=== PATIENT | male | born 1980 | race African-American/Black ===

== ENCOUNTER 2018-09-23 09:11 | Emergency (ER) | payer MEDICARE ==
[2018-09-23] MEDS ORDERED: 0.9 % SODIUM CHLORIDE 1000ML 1,000 ML IV PRN (09:12)
--- NOTE | 2018-09-23 09:21 | Emergency Department Record ---
History of Present Illness - General Chief Complaint: Altered Mental Status Stated Complaint: LOC Time Seen by Provider: 09/23/18 09:15 Source: Patient, Family (mother and father), RN notes reviewed Mode of Arrival: Wheelchair Limitations: Altered mental status - History of Present Illness Initial Comments: mother states he vomited today at 7:30am and he is not as talkative as usual and he is moving both arms but weaker than usual. PMH cerebral palsy and he normally doesn't move his legs and he has a brain shunt for hydrocephalus and history of seizures. Last time in the hospital at [facility] 15 years ago and his pediatric neurologist Dr. Card and he has not set up a adult neurologist. Patient denies pain and he moved both arms to verbal commands. Acuchek ordered, Mother states not diabetic. Mom stated last night he didn't eat much and was tired than and not acting like himself. Currently he denies a headache and no pain but falls asleep when I was talking to him. mother said he had a headache yesterday at 7:30pm last night. acucheck 97 upon arrival to the ED. Mom thinks the brain - Related Data Home Medications Medication Instructions Recorded Confirmed Last Taken No Home Med [NO HOME MEDS] 09/23/18 09/23/18 Unknown Allergies Allergy/AdvReac Type Severity Reaction Status Date / Time No Known Drug Allergies Allergy Verified 09/23/18 09:12 Review of Systems ROS unobtainable: Other (history from mom) Reviewed: No additional complaints except as noted below Constitutional: Reports: As per HPI, Weakness. Denies: Chills, Fever, Malaise, Night sweats, Weight change Eyes: Reports: As per HPI. Denies: Eye discharge, Eye pain, Photophobia, Vision change ENT: Reports: As per HPI. Denies: Congestion, Dental pain, Ear pain, Epistaxis , Hearing loss, Throat pain Respiratory: Reports: As per HPI. Denies: Cough, Dyspnea, Hemoptysis, Stridor, Wheezes Cardiovascular: Reports: As per HPI. Denies: Arrhythmia, Chest pain, Dyspnea on exertion, Edema, Murmurs, Orthopnea, Palpitations, Paroxysmal nocturnal dyspnea, Rheumatic Fever, Syncope Endocrine: Reports: As per HPI, Fatigue. Denies: Heat or cold intolerance, Polydipsia, Polyuria Gastrointestinal: Reports: As per HPI, Vomiting. Denies: Abdominal pain, Constipation, Diarrhea, Hematemesis, Hematochezia, Melena, Nausea Genitourinary: Reports: As per HPI, Other (wears depends). Denies: Dysuria, Frequency, Hematuria, Incontinence, Retention, Testicular pain, Testicular mass , Urgency Musculoskeletal: Reports: As per HPI. Denies: Arthralgia, Back pain, Gout, Joint swelling, Myalgia, Neck pain Skin: Reports: As per HPI. Denies: Bruising, Change in color, Change in hair/ nails, Lesions, Pruritus, Rash Neurological: Reports: As per HPI, Abnormal gait (unable to walk but he does normally stands and pivots), Weakness. Denies: Confusion, Headache, Numbness, Paresthesias, Seizure, Tingling, Tremors, Vertigo Psychiatric: Reports: As per HPI. Denies: Anxiety, Auditory hallucinations, Depression, Homicidal thoughts, Suicidal thoughts, Visual hallucinations Hematological/Lymphatic: Reports: As per HPI. Denies: Anemia, Blood Clots, Easy bleeding, Easy bruising, Swollen glands Physical Exam - General General Appearance: Cooperative, Mild distress, Other (sleepy) Limitations: Altered mental status - Head Head exam: Atraumatic - Eye Eye exam: PERRL, EOMI, Other (large head) Pupils: Normal accommodation - ENT ENT exam: Normal exam Ear exam: Normal external inspection Nasal Exam: Normal inspection Mouth exam: Normal external inspection Teeth exam: Normal inspection Throat exam: Normal inspection - Neck Neck exam: Normal inspection. negative: Lymphadenopathy, Meningismus, Tenderness - Respiratory Respiratory exam: Normal lung sounds bilaterally - Cardiovascular Cardiovascular Exam: Regular rate - GI/Abdominal GI/Abdominal exam: Soft - Rectal Rectal exam: Deferred - exam: Deferred - Extremities Extremities exam: Other. negative: Full ROM (not able to move legs to verbal command) - Back Back exam: Reports: Normal inspection - Neurological Neurological exam: CN II-XII intact, Motor sensory deficit, Other (cerdbral palsy) - Skin Skin exam: Dry, Intact, Normal color, Warm Course - Reevaluation(s) Reevaluation #1: will transfer to [facility] to see neurosurgery and further workup of his abnormal EKG. 09/23/18 10:56 09/23/18 11:[address] Rubi ED physician and Dr. Mao neurosurgery at [facility] and will transsfer to the ED at [facility] Medical Decision Making - Data Complexity MDM Data: Labs Ordered and/or Reviewed (trop t negative), X-Ray Ordered and/or Reviewed, EKG Ordered and/or Reviewed (ekg st elevation v1 ,v2,v3 ,no chest pain and tropt negative) - Lab Data Result diagrams: 09/23/18 09:30 09/23/18 09:30 Disposition Clinical Impression: Hydrocephalus, Obstructive hydrocephalus, Abnormal EKG Shunt malfunction Qualifiers: Encounter type: initial encounter Qualified Code(s): T85.618A - Breakdown ( mechanical) of other specified internal prosthetic devices, implants and grafts , initial encounter Disposition: Acute Care Hospital Transfer Condition: (2) Stable Forms: Patient Portal Access Time of Disposition: 10:47 Quality - Quality Measures Quality Measures: N/A - Blood Pressure Screening Does Patient Have Any of the Following: No Blood Pressure Classification: Hypertensive Reading Systolic Measurement: 132 Diastolic Measurement: 97 Screening for High Blood Pressure: < Pre-Hypertensive BP, F/U Documented > [ [id number]] Pre-Hypertensive Follow-up Interventions: Referral to alternative/primary care provider.
[2018-09-23] MEDS ORDERED: LIDOCAINE UROJECT 10 ML APPL MM ONE (09:41)
[2018-09-23] MEDS ORDERED: 0.9 % SODIUM CHLORIDE 500ML 500 ML IV SCH (09:45)
[2018-09-23 10:07] LABS: HEMATOCRIT 50.5 % (42.0-52.0); HEMOGLOBIN 16.7 gm/dl (14.0-18.0); MEAN CELL VOLUME 85.2 fl (81-97); MEAN CORPUSCULAR HGB CONC 33.1 g/dl (32-36); MEAN PLATELET VOLUME 10.5 fl (7.4-10.4); PLATELET COUNT 270 K/uL (130-400); RED BLOOD COUNT 5.93 M/uL (4.40-5.70); RED CELL DISTRIBUTION WIDTH 15.4 % (11.5-14.5); WHITE BLOOD COUNT W/O DIFF 6.7 K/uL (4.2-12.2)
[2018-09-23 10:08] LABS: URINE APPEARANCE CLEAR; URINE BILIRUBIN SMALL (NEGATIVE); URINE BLOOD TRACE-I (NEGATIVE); URINE COLOR YELLOW; URINE GLUCOSE (UA) NEGATIVE (NEGATIVE); URINE KETONE 15 mg/dL (NEGATIVE); URINE LEUKOCYTE ESTERASE NEGATIVE (NEGATIVE); URINE NITRITE NEGATIVE (NEGATIVE)
[2018-09-23 10:10] LABS: MEAN CORPUSCULAR HEMOGLOBIN 28.1 pg (27-33)
[2018-09-23] MEDS ORDERED: ASPIRIN 81 MG CHEWABLE TABLET PO ONE (10:13)
[2018-09-23 10:14] LABS: AMPHETAMINE SCREEN URINE NOT DETECTED; BARBITURATE SCREEN URINE NOT DETECTED; BENZODIAZEPINE SCREEN URINE NOT DETECTED; COCAINE SCREEN URINE NOT DETECTED; METHADONE SCREEN URINE NOT DETECTED; METHAMPHETAMINE SCREEN NOT DETECTED; OPIATE SCREEN URINE NOT DETECTED; OXYCODONE SCREEN URINE NOT DETECTED; PHENCYCLIDINE SCREEN URINE NOT DETECTED; PROPOXYPHENE SCREEN URINE NOT DETECTED; THC SCREEN URINE NOT DETECTED; TRICYCLIC ANTIDEPRESSANT SCRN NOT DETECTED
[2018-09-23 10:19] LABS: URINE WBC 0 - 2 (0-2/hpf)
[2018-09-23 10:20] LABS: URINE BACTERIA FEW; URINE MUCUS LIGHT
[2018-09-23 10:22] LABS: BLOOD UREA NITROGEN 14 mg/dL (6-20); CREATININE 0.7 mg/dL (0.7-1.2); EST GLOMERULAR FILTRATION RATE > 60 mL/min
[2018-09-23 10:23] LABS: TOTAL PROTEIN 9.2 g/dL (6.6-8.7)
[2018-09-23 10:25] LABS: GLUCOSE,RANDOM 103 mg/dL (74-109)
[2018-09-23 10:27] LABS: ALB/GLOB RATIO 1.2 (1.1-1.8); ALKALINE PHOSPHATASE 103 U/L (55-149); ALT/SGPT 16 U/L (<41); AST/SGOT 20 U/L (10.0-50.0)
[2018-09-23 10:31] LABS: ACETAMINOPHEN < 5.0 ug/mL (10.0-30.0); SALICYLATE < 0.3 mg/dL (2.8-20)
--- NOTE | 2018-09-25 12:27 | RADIOLOGY REPORT ---
DATE: 09/23/2018 at 10:33 a.m. EXAM: CHEST ONE VIEW. HISTORY: Shunt evaluation. Decreased alertness. TECHNIQUE: Single AP supine view of the chest is obtained. COMPARISON: Two-view chest radiographic examination dated 08/08/2016. FINDINGS: The lung volumes are low. The heart projects enlarged. Evaluation of the vasculature is limited by supine technique. No lung consolidation, costophrenic angle blunting, or pneumothorax. Mild prominence of the paratracheal stripes, likely related to technique. A vertically oriented shunt catheter is again noted right of midline. The tubing appears fractured at the level of the right side of the neck base. IMPRESSION: 1. VENTRICULOPERITONEAL SHUNT TUBING IDENTIFIED WITH EVIDENCE OF FRACTURE AT THE LEVEL OF THE RIGHT SIDE OF THE NECK BASE. 2. MILD CARDIOMEGALY. CLEAR LUNGS. ADDENDUM: The fracture of the ventriculoperitoneal shunt tubing at the level of the right side of the neck base is present on prior scoliosis survey dated . JOB [facility]BER: [id number] [facility]
--- NOTE | 2018-09-25 12:31 | RADIOLOGY REPORT ---
DATE: 09/23/2018 at 10:35 a.m. EXAM: ABDOMEN ONE VIEW. HISTORY: Shunt evaluation. TECHNIQUE: Single AP supine view of the abdomen is obtained. COMPARISON: Scoliosis survey dated 05/05/2017. FINDINGS: There is a moderate amount of stool within the colon and rectum. No bowel dilatation is seen. No mass, organomegaly, or suspicious calcification. Shunt tubing is again noted within the abdomen with its tip in the left upper quadrant. The visualized tubing appears intact. Degenerative changes of the hips. IMPRESSION: NO EVIDENCE OF AN ACUTE INTRAABDOMINAL PROCESS. VENTRICULOPERITONEAL SHUNT TUBING IN PLACE. THE VISUALIZED PORTION OF THE SHUNT APPEARS INTACT. JOB NUMBER: [id number] [facility]
--- NOTE | 2018-09-25 12:37 | CT SCAN REPORT ---
EXAM: CT OF THE HEAD WITHOUT CONTRAST HISTORY: LOC TECHNIQUE: Noncontrast CT of the head was obtained. Comparison: None. FINDINGS: A ventricular shunt is in place via a right parietal bur hole. This extends anteriorly and leftward with its tip at the level of the medial aspect of the body of the left lateral ventricle. There is marked dilatation of the lateral ventricles and third ventricle. The subarachnoid spaces in the supratentorial region appear effaced. The posterior fossa subarachnoid spaces do not appear grossly effaced. No suspicious focal area of abnormally increased or decreased attenuation is noted throughout the brain substance. There is, however, periventricular white matter lucency primarily in the superior frontal parietal regions. No abnormal extraaxial fluid collection. No skull fracture. The visualized shunt tubing in the right parietal occipital scalp appears intact. There is mucosal thickening and a small amount of debris in the left sphenoid sinus. The paranasal sinuses and mastoid air cells are otherwise clear. The orbits as visualized are unremarkable. IMPRESSION: 1. VENTRICULAR SHUNT IN PLACE VIA A RIGHT PARIETAL APPROACH WITH ITS TIP IN THE BODY OF THE LEFT LATERAL VENTRICLE. 2. MARKED DILATATION OF THE LATERAL VENTRICLES AND THIRD VENTRICLE WITH ASSOCIATED PERIPHERAL SUBARACHNOID SPACE EFFACEMENT. 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 JOB NUMBER: [id number] [facility]
== END 2018-09-23 11:59 | disposition short-term general hospital (02) ==
LOC: ER 09:11
DX: T85.618A Breakdown (mechanical) of other specified internal prosthetic devices, implants and grafts, initial encounter (principal); R94.31 Abnormal electrocardiogram [ECG] [EKG]; R53.1 Weakness; R51 Headache; G91.1 Obstructive hydrocephalus
CPT/HCPCS: 99285 ×2; 96360; 83605; 85730; 80053; 36416; 81001; 82948; 80305; 84484; 85027; 74018; 71045; 70450; 93005; 93010; G0480 ×3; 80320; 80329; J7040